=== PATIENT | male | born 1965 | race African-American/Black ===

== ENCOUNTER 2021-02-25 17:56 | Emergency (ER) | payer BC ==
[~2021-02-25] VITALS: Ht 188 cm; Wt 100.0 kg
[2021-02-25] MEDS ORDERED: KETOROLAC 60MG/2ML VIAL IM ONE (18:30)
[2021-02-25] MEDS ORDERED: CYCL5TAB MT (18:58)
[2021-02-25 19:54] LABS: CLARITY URINE CLEAR (CLEAR); COLOR URINE YELLOW (YELLOW); KETONES URINE NEGATIVE (NEGATIVE); LEUKOCYTE ESTERASE URINE NEGATIVE (NEGATIVE); NITRITE URINE NEGATIVE (NEGATIVE); OCCULT BLOOD URINE NEGATIVE (NEGATIVE); PROTEIN URINE NEGATIVE (NEGATIVE); SPECIFIC GRAVITY URINE 1.024 (1.005-1.030)
== END 2021-02-25 20:12 | disposition home or self-care (01) ==
LOC: ER 17:56
DX: M54.5 Low back pain (principal)
CPT/HCPCS: 81003; 96372; 99283; J1885